=== PATIENT | female | born 1980 | race Caucasian/White ===

== ENCOUNTER 2018-04-17 13:47 | Emergency (ER) | payer BC, SELFPAY ==
--- NOTE | 2018-04-17 15:44 | EKG ---
Test Date: 2018-04-17 Test Time: 13:55:15 [employer] Specialist: PERLITA MEASUREMENT RESULTS: Intervals: Rate: 118 ID: [id number] QRSD: 72 QT: 348 QTc: 487 [place]: P: 52 ID: [id number] QRS: 63 T: 48 INTERPRETIVE STATEMENTS: Sinus tachycardia Otherwise normal ECG Compared to ECG 06/15/2010 08:36:14 No significant changes Electronically Signed On 04-17-18 15:44:21 CDT by Homero Crystal
[2018-04-17 16:06] LABS: Absolute Lymphocytes (CBC) 2.4 K/uL (0.7-4.9); Absolute Monocytes 0.6 K/uL (0.1-1.3); Absolute Neutrophil 6.8 K/uL (1.8-8.0); Basophils % 0.4 % (0-1.3); Eosinophils % 0.1 % (0-4.4); Hematocrit 43.9 % (36.0-45.0); Lymphocytes % 24.4 % (15.3-44.8); MCH 28.9 pg (27.0-35.0); MCV 83.3 fL (80-100); MPV 8.9 fL (7.6-11.3); Monocytes % 5.9 % (3.3-12.3); RBC Red Blood Cell Count 5.27 M/uL (3.86-4.86)
[2018-04-17 16:34] LABS: BUN Blood Urea Nitrogen 12 mg/dL (7-18); Bicarbonate 28 mmol/L (21-32); Glucose Level 123 mg/dL (74-106); Sodium Level 139 mmol/L (136-145); T3 Free 12.19 pg/mL (2.18-3.98)
--- NOTE | 2018-04-17 16:34 | RAD REPORT ---
EXAM DESCRIPTION: RAD - Chest Pa And Lat (2 Views) - 04/17/2018 2:56 pm CLINICAL HISTORY: Shortness of breath COMPARISON: August 2013 TECHNIQUE: PA and lateral views of the chest were obtained. FINDINGS: The lungs are clear of an acute infiltrate, failure or mass finding. Lung markings are pro minent but not clearly different. Heart size is normal and central vasculature is within normal pedro its. No pleural effusion or pneumothorax seen. No acute bony finding noted. No aortic abnormality. IMPRESSION: No acute cardiopulmonary process. Mildly prominent interstitial pattern is not clearly different from 2013.
[2018-04-17 16:45] LABS: Thyroid Stimulating Hormone < 0.005 uIU/mL (0.36-3.74)
[2018-04-17 16:47] LABS: Potassium 2.9 mmol/L (3.5-5.1)
[2018-04-17] MEDS ORDERED: DIAZEPAM 5 MG TABLET ONE (17:04)
[2018-04-17] MEDS ORDERED: POTASSIUM 25 MEQ EFFERV TAB ONE (17:04)
[2018-04-17] MEDS ORDERED: PROMETHAZINE 25 MG/ML VIAL ONE (17:21)
--- NOTE | 2018-04-17 18:17 | ER ---
Nurse's Notes [facility] Name: Phuong Cassidy Age: 37 yrs Sex: Female : 1980 Arrival Date: 04/17/2018 Time: 13:50 Bed 14 Private MD: Diagnosis: Thyrotoxicosis [hyperthyroidism];Anxiety disorder, unspecified;Hypokalemia Presentation: 04/17 13:52 Presenting complaint: Patient states: "I am short of breath and shaky". Pt also reports aa5 black stool x 1 week ago. Pt denies pain. Pt's mother states "she's been off her thyroid medicine for a couple of months due to insurance problems". 13:52 Transition of care: patient was not received from another setting of care. Onset of aa5 symptoms was April 17, 2018. Risk Assessment: Do you want to hurt yourself or someone else? Patient reports no desire to harm self or others. Initial Sepsis Screen: Does the patient meet any 2 criteria? No. Patient's initial sepsis screen is negative. Does the patient have a suspected source of infection? No. Patient's initial sepsis screen is negative. Care prior to arrival: None. 13:52 Method Of Arrival: Wheelchair aa5 13:52 Acuity: ROSIBEL 3 aa5 Triage Assessment: 15:29 General: Appears in no apparent distress. uncomfortable, Behavior is calm, cooperative, hj appropriate for age. Pain: Denies pain. EENT: No signs and/or symptoms were reported regarding the EENT system. Neuro: Level of Consciousness is awake, alert, obeys commands, Oriented to person, place, time, situation, Appropriate for age. Cardiovascular: Capillary refill < 3 seconds Patient's skin is warm and dry. Respiratory: Reports shortness of breath at rest on exertion Onset: The symptoms/episode began/occurred the patient has moderate shortness of breath. GI: No signs and/or symptoms were reported involving the gastrointestinal system. : No signs and/or symptoms were reported regarding the genitourinary system. Derm: No signs and/or symptoms reported regarding the dermatologic system. Musculoskeletal: No signs and/or symptoms reported regarding the musculoskeletal system. 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 - Social history:: Smoking status: Patient uses tobacco products, smokes one-half pack cigarettes per day. - Ebola Screening: : No symptoms or risks identified at this time. Screenin:15 Abuse screen: Denies threats or abuse. Denies injuries from another. Nutritional hj screening: No deficits noted. Tuberculosis screening: No symptoms or risk factors identified. Fall Risk None identified. Assessment: 15:28 Pain: Denies pain. Cardiovascular: Rhythm is regular. Respiratory: Airway is patent hj Respiratory effort is even, unlabored, Respiratory pattern is regular, symmetrical, Breath sounds are clear bilaterally. 15:30 Reassessment: see triage for assessment;. hj 16:17 Reassessment: Patient and/or family updated on plan of care and expected duration. Pain hj level reassessed. Patient is alert, oriented x 3, equal unlabored respirations, skin warm/dry/pink. awaiting results and POC;. 17:47 Reassessment: Patient and/or family updated on plan of care and expected duration. Pain hj level reassessed. Patient is alert, oriented x 3, equal unlabored respirations, skin warm/dry/pink. for transfer. 18:19 Reassessment: Patient and/or family updated on plan of care and expected duration. Pain hj level reassessed. Patient is alert, oriented x 3, equal unlabored respirations, skin warm/dry/pink. transfer in process;. 19:10 Reassessment: Patient appears in no apparent distress at this time. Patient and/or bs1 family updated on plan of care and expected duration. Pain level reassessed. Patient is alert, oriented x 3, equal unlabored respirations, skin warm/dry/pink. Report received from ZONIA lund. Per day shift nurse report was called to [facility]. Pending EMS transportation. 19:10 General: Appears in no apparent distress. uncomfortable, Behavior is calm, cooperative, bs1 appropriate for age. Pain: Denies pain. Neuro: Level of Consciousness is awake, alert, obeys commands. Cardiovascular: Denies chest pain, shortness of breath, Rhythm is regular. Respiratory: Airway is patent Trachea midline Respiratory effort is even, unlabored, Respiratory pattern is regular, symmetrical, Breath sounds are clear bilaterally. GI: No signs and/or symptoms were reported involving the gastrointestinal system. : No signs and/or symptoms were reported regarding the genitourinary system. EENT: No signs and/or symptoms were reported regarding the EENT system. Derm: Skin is intact. Musculoskeletal: Circulation, motion, and sensation intact. Capillary refill < 3 seconds, Range of motion: intact in all extremities. 21:00 Reassessment: Patient appears in no apparent distress at this time. Patient and/or bs1 family updated on plan of care and expected duration. Pain level reassessed. Patient is alert, oriented x 3, equal unlabored respirations, skin warm/dry/pink. Pending EMS trasnportation. 22:00 Reassessment: Patient appears in no apparent distress at this time. Patient and/or bs1 family updated on plan of care and expected duration. Pain level reassessed. Patient is alert, oriented x 3, equal unlabored respirations, skin warm/dry/pink. report given to [facility]. Vital Signs: 13:55 BP 148 / 98; Pulse 118; Resp 20 S; Temp 98.7(TE); Pulse Ox 97% on R/A; Weight 86.18 kg aa5 (R); Height 5 ft. 2 in. (157.48 cm) (R); Pain 0/10; 15:31 BP 147 / 90; Pulse 101; Resp 18; Temp 98.1(TE); Pulse Ox 98% on R/A; hj 16:16 BP 156 / 90; Pulse 98; Resp 18; Pulse Ox 97% on R/A; hj 17:47 BP 135 / 83; Pulse 98; Resp 18; Pulse Ox 100% on R/A; hj 18:19 BP 164 / 92; Pulse 94; Resp 18; Pulse Ox 100% on R/A; hj 18:28 BP 140 / 103; Pulse 103; Resp 18; Pulse Ox 100% on R/A; hj 19:07 BP 136 / 99; Pulse 91; Resp 18 S; Pulse Ox 97% on R/A; bs1 20:00 BP 109 / 72; Pulse 79; Resp 17; Pulse Ox 98% ; bs1 20:30 BP 128 / 98; Pulse 83; Resp 18; Pulse Ox 97% on R/A; bs1 21:42 BP 142 / 88; Pulse 87; Resp 18; Pulse Ox 98% on R/A; bs1 13:55 Body Mass Index 34.75 (86.18 kg, 157.48 cm) aa5 ED Course: 13:50 Patient arrived in ED. aa5 13:51 Arm band placed on. aa5 13:55 Triage completed. aa5 13:55 EKG completed in triage. Results shown to MD. aa5 14:43 Chest Pa And Lat (2 Views) XRAY In Process Unspecified. EDMS 14:43 X-ray completed. Patient tolerated procedure well. az 15:06 Andrae Simon RN is Primary Nurse. hj 15:21 [facility] Richey [facility]-C is [facility] snw 15:21 Aashish Monroe MD is Attending Physician. snw 15:30 Patient has correct armband on for positive identification. Placed in gown. Bed in low hj position. Call light in reach. Side rails up X 1. Adult w/ patient. 15:45 Inserted saline lock: 22 gauge in right antecubital area, using aseptic technique. Blood collected. 15:45 Initial lab(s) drawn, by nm, sent to lab. First set of blood cultures drawn by nm. hj 16:00 EKG done, by qa tech. reviewed by Blanca MASON. [facility] 16:00 Second set of blood cultures drawn by nm. hj 18:44 Inserted saline lock: 22 gauge in left forearm, using aseptic technique. hj 19:13 Report given to ZONIA Maldonado. hj 22:07 No provider procedures requiring assistance completed. Patient transferred, IV remains bs1 in place. intact. Administered Medications: Discontinued: NS 0.9% with KCl 40 mEq/L 1000 ml IV at 80 ml/hr continuous 16:52 Drug: Valium 5 mg Route: PO; hj 17:03 Follow up: Response: No adverse reaction; Anxiety decreased hj 18:20 Follow up: Response: No adverse reaction; Anxiety decreased hj 16:52 Drug: Potassium Effervescent Tablet 50 mEq Route: PO; hj 17:03 Follow up: Response: No adverse reaction hj 17:19 Drug: Phenergan 12.5 mg Route: IVP; Site: right antecubital; hj 18:16 Follow up: Response: No adverse reaction; Vomiting decreased hj 18:17 Drug: NS 0.9% with KCl 40 mEq/L 1000 ml Route: IV; Rate: 80 ml/hr; Site: right hj antecubital; 18:17 Follow up: IV Status: Infusion continued upon transfer hj 18:21 Follow up: IV Status: Infusion continued upon transfer hj 18:21 Drug: NS 0.9% with KCl 40 mEq/L 1000 ml Route: IV; Rate: 125 ml/hr; Site: right hj antecubital; 18:28 Follow up: IV Status: Infusion continued upon transfer hj 18:23 Drug: Potassium Chloride 20 mEq Route: IV; Rate: per protocol; Site: left forearm; hj 19:03 Follow up: IV Status: Infusion continued; Infusion continued upon transfer hj 18:23 Drug: Lopressor 25 mg Route: PO; hj 19:03 Follow up: Response: No adverse reaction hj 18:23 Drug: Lopressor 2.5 mg Route: IVP; Site: left forearm; hj 19:03 Follow up: Response: No adverse reaction hj 19:08 Drug: Lopressor 2.5 mg Route: IVP; Site: left forearm; hj 19:08 Follow up: Response: No adverse reaction Outcome: 18:17 ER care complete, transfer ordered by MD. barrios 22:08 Transferred by ground EMS to [facility], Transfer form completed. bs1 X-rays sent w/ patient. Note: Report given to [facility] 22:08 Condition: stable 22:08 Instructed on the need for transfer, Demonstrated understanding of instructions. 22:08 Patient left the ED. bs1 Signatures: Dispatcher [employer] EDAashish Ocampo MD MD cha Therrien, Shelly, CARE NAVIGATOR-C CARE NAVIGATOR-Csnw Violet Lamar RN RN aa5 Andrae Simon RN RN Giana Golden RN RN bs1 Betina Vasquez 3 Farris, Denice az Corrections: (The following items were deleted from the chart) 13:56 13:55 BP 148 / 98; Pulse 118bpm; Resp 20bpm; Spontaneous; Pulse Ox 97% RA; Temp 98.7F aa5 Temporal; aa5
--- NOTE | 2018-04-17 18:17 | EDPHYS ---
Physician Documentation [facility] Name: Phuong Cassidy Age: 37 yrs Sex: Female : 1980 Arrival Date: 04/17/2018 Time: 13:50 Bed 14 Private MD: ED Physician Aashish Monroe HPI: 04/17 16:13 This 37 yrs old Female presents to ER via Wheelchair with complaints of snw Shortness Of Breath. 16:13 The patient has shortness of breath with light activity. Onset: The symptoms/episode snw began/occurred suddenly, 3 day(s) ago, and became persistent. Duration: The symptoms are continuous. Associated signs and symptoms: Pertinent positives: This patient does not have any pertinent positive signs or symptoms associated with shortness of breath. Severity of symptoms: At their worst the symptoms were moderate in the emergency department the symptoms are unchanged. The patient has not experienced similar symptoms in the past. The patient has not recently seen a physician. not taking methimizole x 2+ months. 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 - Social history:: Smoking status: Patient uses tobacco products, smokes one-half pack cigarettes per day. - Ebola Screening: : No symptoms or risks identified at this time. ROS: 16:12 Eyes: Negative for injury, pain, redness, and discharge, ENT: Negative for injury, snw pain, and discharge, Neck: Negative for injury, pain, and swelling, Cardiovascular: Negative for chest pain, palpitations, and edema. 16:12 Abdomen/GI: Negative for abdominal pain, nausea, vomiting, diarrhea, and constipation, Back: Negative for injury and pain, : Negative for injury, bleeding, discharge, and swelling, MS/Extremity: Negative for injury and deformity, Skin: Negative for injury, rash, and discoloration, Neuro: Negative for headache, weakness, numbness, tingling, and seizure. 16:12 Constitutional: Positive for body aches, fatigue, malaise. 16:12 Respiratory: Positive for dyspnea on exertion, shortness of breath. Exam: 16:10 Constitutional: This is a well developed, well nourished patient who is awake, alert, snw and in no acute distress. Head/Face: Normocephalic, atraumatic. 16:10 ENT: Nares patent. No nasal discharge, no septal abnormalities noted. Tympanic membranes are normal and external auditory canals are clear. Oropharynx with no redness, swelling, or masses, exudates, or evidence of obstruction, uvula midline. Mucous membranes moist. Neck: Trachea midline, no thyromegaly or masses palpated, and no cervical lymphadenopathy. Supple, full range of motion without nuchal rigidity, or vertebral point tenderness. No Meningismus. Chest/axilla: Normal chest wall appearance and motion. Nontender with no deformity. No lesions are appreciated. 16:10 Abdomen/GI: Soft, non-tender, with normal bowel sounds. No distension or tympany. No guarding or rebound. No evidence of tenderness throughout. Back: No spinal tenderness. No costovertebral tenderness. Full range of motion. Skin: Warm, dry with normal turgor. Normal color with no rashes, no lesions, and no evidence of cellulitis. MS/ Extremity: Pulses equal, no cyanosis. Neurovascular intact. Full, normal range of motion. 16:10 Eyes: Periorbital structures: exopthalmus. 16:10 Eyes: Pupils: no acute changes. 16:10 Cardiovascular: Rate: tachycardic, Heart sounds: normal. 16:10 Respiratory: the patient does not display signs of respiratory distress, Respirations: shallow respirations, tachypnea, Breath sounds: wheezing: expiratory is heard in the left upper lobe. 16:10 Neuro: Orientation: is normal, Mentation: is normal, Memory: is normal, seizure activity, is not displayed by the patient, tremorous. Vital Signs: 13:55 BP 148 / 98; Pulse 118; Resp 20 S; Temp 98.7(TE); Pulse Ox 97% on R/A; Weight 86.18 kg aa5 (R); Height 5 ft. 2 in. (157.48 cm) (R); Pain 0/10; 15:31 BP 147 / 90; Pulse 101; Resp 18; Temp 98.1(TE); Pulse Ox 98% on R/A; hj 16:16 BP 156 / 90; Pulse 98; Resp 18; Pulse Ox 97% on R/A; hj 17:47 BP 135 / 83; Pulse 98; Resp 18; Pulse Ox 100% on R/A; hj 18:19 BP 164 / 92; Pulse 94; Resp 18; Pulse Ox 100% on R/A; hj 18:28 BP 140 / 103; Pulse 103; Resp 18; Pulse Ox 100% on R/A; hj 19:07 BP 136 / 99; Pulse 91; Resp 18 S; Pulse Ox 97% on R/A; bs1 20:00 BP 109 / 72; Pulse 79; Resp 17; Pulse Ox 98% ; bs1 20:30 BP 128 / 98; Pulse 83; Resp 18; Pulse Ox 97% on R/A; bs1 21:42 BP 142 / 88; Pulse 87; Resp 18; Pulse Ox 98% on R/A; bs1 13:55 Body Mass Index 34.75 (86.18 kg, 157.48 cm) aa5 MDM: 15:23 Patient medically screened. snw 18:25 Data reviewed: vital signs, nurses notes. Data interpreted: Pulse oximetry: on room air snw is 100 %. Interpretation: normal. Counseling: I had a detailed discussion with the patient and/or guardian regarding: the historical points, exam findings, and any diagnostic results supporting the discharge/admit diagnosis, the presence of at least one elevated blood pressure reading (>120/80) during this emergency department visit, lab results, radiology results, the need to transfer to another facility, for higher level of care, [facility] does not immediately have the required specialist. Physician consultation: Aashish Monroe MD care transferred. 04/17 15:31 Order name: CBC with Diff; Complete Time: 16:15 snw 04/17 15:31 Order name: Chem 7; Complete Time: 16:50 snw 04/17 15:31 Order name: TSH; Complete Time: 16:50 snw 04/17 15:31 Order name: T3 Free; Complete Time: 16:50 04/17 15:31 Order name: T4 Free; Complete Time: 16:50 w 04/17 15:32 Order name: Blood Culture* 04/17 13:59 Order name: Chest Pa And Lat (2 Views) XRAY; Complete Time: 16:37 04/17 13:59 Order name: EKG; Complete Time: 14:00 04/17 13:59 Order name: EKG - Nurse/Tech; Complete Time: 15:33 04/17 17:49 Order name: EKG Electrocardiogram EDMS Administered Medications: Discontinued: NS 0.9% with KCl 40 mEq/L 1000 ml IV at 80 ml/hr continuous 16:52 Drug: Valium 5 mg Route: PO; hj 17:03 Follow up: Response: No adverse reaction; Anxiety decreased hj 18:20 Follow up: Response: No adverse reaction; Anxiety decreased hj 16:52 Drug: Potassium Effervescent Tablet 50 mEq Route: PO; hj 17:03 Follow up: Response: No adverse reaction hj 17:19 Drug: Phenergan 12.5 mg Route: IVP; Site: right antecubital; hj 18:16 Follow up: Response: No adverse reaction; Vomiting decreased hj 18:17 Drug: NS 0.9% with KCl 40 mEq/L 1000 ml Route: IV; Rate: 80 ml/hr; Site: right hj antecubital; 18:17 Follow up: IV Status: Infusion continued upon transfer hj 18:21 Follow up: IV Status: Infusion continued upon transfer hj 18:21 Drug: NS 0.9% with KCl 40 mEq/L 1000 ml Route: IV; Rate: 125 ml/hr; Site: right hj antecubital; 18:28 Follow up: IV Status: Infusion continued upon transfer hj 18:23 Drug: Potassium Chloride 20 mEq Route: IV; Rate: per protocol; Site: left forearm; hj 19:03 Follow up: IV Status: Infusion continued; Infusion continued upon transfer hj 18:23 Drug: Lopressor 25 mg Route: PO; hj 19:03 Follow up: Response: No adverse reaction hj 18:23 Drug: Lopressor 2.5 mg Route: IVP; Site: left forearm; hj 19:03 Follow up: Response: No adverse reaction hj 19:08 Drug: Lopressor 2.5 mg Route: IVP; Site: left forearm; hj 19:08 Follow up: Response: No adverse reaction Disposition: 04/18 12:12 Co-signature as Attending Physician, Aashish Monroe MD I agree with the assessment and [facility] plan of care. Disposition: 04/17/18 18:17 Transfer ordered to [facility]. Diagnosis are Thyrotoxicosis [hyperthyroidism], Anxiety disorder, unspecified, Hypokalemia. - Reason for transfer: Higher level of care. - Accepting physician is to [facility]. - Condition is Fair. - Problem is new. - Symptoms have improved. Signatures: Dispatcher [employer] EDVA Aashish Monroe MD MD cha Therrien, Shelly, ROBOTYPE OPERATOR-C ROBOTYPE OPERATOR-Csnw Violet Lamar, RN RN aa5 Andrae Simon RN RN Giana Golden RN RN bs1 Corrections: (The following items were deleted from the chart) 04/17 18:21 18:17 04/17/2018 18:17 Transfer ordered to [facility]. Diagnosis is [facility] Thyrotoxicosis [hyperthyroidism]; Anxiety disorder, unspecified. Reason for transfer: Higher level of care. Accepting physician is to [facility]. Condition is Fair. Problem is new. Symptoms have improved. [facility] 22:08 18:21 04/17/2018 18:17 Transfer ordered to [facility]. Diagnosis is bs1 Thyrotoxicosis [hyperthyroidism]; Anxiety disorder, unspecified; Hypokalemia. Reason for transfer: Higher level of care. Accepting physician is to [facility]. Condition is Fair. Problem is new. Symptoms have improved. [facility]
[2018-04-17] MEDS ORDERED: METOPROLOL TAR 25 MG TAB ONE (18:36)
[2018-04-17] MEDS ORDERED: METOPROLOL TARTRATE 5 MG/5 ML INJ IV ONE (18:36)
[2018-04-17] MEDS ORDERED: KCL 20 MEQ/100 mL IVPB 20 MEQ/100 ML BAG IV ONE (18:37)
[2018-04-17] MEDS ORDERED: NA CHLORIDE 0.9% 1,000 ML with POTASSIUM CL 40 MEQ IV SCH ×2 (19:00)
--- NOTE | 2018-04-17 19:07 | EKG ---
Test Date: 2018-04-17 Test Time: 15:30:26 Fraud Examiner: ALBERTO MEASUREMENT RESULTS: Intervals: Rate: 99 ME: 120 QRSD: 78 QT: 384 QTc: 492 Albert: P: 49 ME: 120 QRS: 65 T: 49 INTERPRETIVE STATEMENTS: Normal sinus rhythm Prolonged QT Abnormal ECG Compared to ECG 04/17/2018 13:55:15 Prolonged QT interval now present Sinus tachycardia no longer present Electronically Signed On 04-17-18 19:06:27 CDT by Homero Crystal
[2018-04-17 22:30] VITALS: TEMP 98.1
[2018-04-17 22:38] VITALS: BP 142/88; O2SAT 98
== END 2018-04-17 22:08 | disposition short-term general hospital (02) ==
LOC: ER 13:47
DX: E05.90 Thyrotoxicosis, unspecified without thyrotoxic crisis or storm (principal); E87.6 Hypokalemia; F41.9 Anxiety disorder, unspecified; I10 Essential (primary) hypertension; F17.210 Nicotine dependence, cigarettes, uncomplicated
CPT/HCPCS: 36415; 71046; 80048; 84439; 84443; 84481; 85025; 87040; 93005; 99285; J2550; J7030